=== PATIENT | female | born 1995 | race Hispanic/Latino ===

== ENCOUNTER 2021-05-03 10:58 | Emergency (ER) | payer OTHER, SELFPAY ==
[2021-05-03 11:01] VITALS: BP 123/81; PULSE 69; RESP 18; TEMP 37.3; O2SAT 100
--- NOTE | 2021-05-03 12:46 | ED.WOUNDLAC ---
HPI - Wound/Laceration General Chief Complaint: Wound/Laceration Stated Complaint: Right Hand Laceration Time Seen by Provider: 05/03/21 11:48 Source: patient Mode of arrival: ambulatory Limitations: no limitations History of Present Illness HPI narrative: This is a 25-year-old female that presents to the emergency department for right hand laceration sustained early this morning. Reports sometime after midnight she accidentally cut her hand on some sharp scissors. Reports bleeding and pain to the area. She is up-to-date on tetanus. Denies decreased range of motion or numbness. Related Data Allergies Allergy/AdvReac Type Severity Reaction Status Date / Time NKDA Allergy Unknown Unknown Uncoded 05/03/21 11:04 Review of Systems Review of Systems: Narrative: CONSTITUTIONAL: Denies fever SKIN: Reports laceration MUSCULOSKELETAL: Denies joint pain, or myalgia. NEUROLOGIC: Denies numbness All systems reviewed & are unremarkable except as noted in HPI and below PMFSH Past Medical History Medical History (Updated 05/03/21 @ 13:13 by Kateryna Nieves PA-C) No active medical problems Social History Social History (Updated 05/03/21 @ 12:47 by Kateryna Nieves PA-C) Smoking status: Never smoker Exam Narrative: Exam Narrative: GENERAL: Well-appearing, well-nourished, and in no acute distress. HEAD: Normocephalic, atraumatic. EYES: EOMI. EXTREMITIES: Normal range of motion. No edema obvious deformity. Right hand lateral to the fifth metacarpal with 2 cm linear laceration into subcutaneous tissue. Normal radial pulses. Normal sensation SKIN: Warm, dry, no rash. NEURO: No focal deficits. Alert and oriented x3. PSYCH: Normal mood and affect Course Vital Signs Vital signs: Vital Signs Temperature 99.1 F 05/03/21 11:01 Pulse Rate 69 05/03/21 11:01 Respiratory Rate 18 05/03/21 11:01 Blood Pressure 123/81 05/03/21 11:01 Pulse Oximetry 100 05/03/21 11:01 Temperature 99.1 F 05/03/21 11:01 Pulse Rate 69 05/03/21 11:01 Respiratory Rate 18 05/03/21 11:01 Blood Pressure 123/81 05/03/21 11:01 Pulse Oximetry 100 05/03/21 11:01 Procedures Laceration Laceration 1: Date: 05/03/21 Time: 13:11 Site: hand Side (If applicable): right Size (cm): 2 Description: linear Depth: simple, single layer Local Anesthetic: lidocaine 1% and with epi Amount of anesthesia used (mL): 2 Pre-repair: irrigated ====== Skin Level ====== Skin layer closed with: nylon Size (cm): 5-0 Number of sutures: 2 Technique: simple, interrupted ====== Subcutaneous Layer ====== ====== Muscle Layer ====== ====== Tendon Layer ====== MDM - Wound/Laceration MDM Narrative Medical decision making narrative: Patient presents the emergency department for laceration to right hand sustained earlier this morning. I wound was irrigated and closed with sutures. She is up-to-date on tetanus. She was educated on wound care. She is to follow-up with primary care doctor for suture removal. She was given warnings to return to the ER Critical Care Time Critical Care Time Critical Care Time: No Discharge Plan Discharge Clinical Impression: Laceration Patient Disposition: Home, Self-Care Condition: Stable Instructions: Care For Your Stitches (ED), Laceration (ED) Additional Instructions: Return to the emergency department if you experience fever, redness or swelling of your wound, abnormal drainage from your wound, or any other symptoms that are concerning to you. Apply antibiotic ointment daily. Do not soak the wound. Clean with mild soap and water daily Follow-up with your primary care doctor for suture removal in 10-14 days. Follow-up/Referrals: Shawn French MD [Primary Care Provider] - 2 Weeks
[2021-05-03 13:55] VITALS: BP 113/89; PULSE 82; RESP 18; TEMP 36.6; O2SAT 100
== END 2021-05-03 14:14 | disposition home or self-care (01) ==
PROVIDERS: Emergency Provider Emergency Medicine; PCP Family Medicine
DX: S61.411A Laceration without foreign body of right hand, initial encounter (principal); W27.2XXA Contact with scissors, initial encounter
CPT/HCPCS: 12001; 99282

== ENCOUNTER 2022-09-20 10:46 | Emergency (ER) | payer OTHER, SELFPAY ==
[2022-09-20 11:12] VITALS: BP 130/77; PULSE 94; RESP 20; TEMP 36.3; O2SAT 100
--- NOTE | 2022-09-20 12:29 | ED.EAR ---
HPI - Ear Problem General Chief complaint: Ear Stated complaint: Ears Irritation Time Seen by Provider: 09/20/22 12:30 Source: patient Mode of arrival: ambulatory Limitations: no limitations History of Present Illness HPI Narrative: 27-year-old female presents with complaint of bilateral ear pressure that started yesterday. Reports that she has been sick for 1 week with nasal congestion, postnasal drainage, sore throat and cough. Is taking an [id number] medication to treat her symptoms. Afebrile. Denies chest pain and shortness of breath. All systems reviewed and negative except as noted above. Related Data Allergies Allergy/AdvReac Type Severity Reaction Status Date / Time NKDA Allergy Unknown Unknown Uncoded 09/20/22 12:11 Review of Systems Review of Systems: CONSTITUTIONAL: Denies fever, chills, or sweats. EYES: Denies visual changes, redness, or discharge. ENT: Report rhinorrhea, congestion, sore throat, and otalgia. CARDIOVASCULAR: Denies chest pain, palpitations, or edema. RESPIRATORY: reports cough. Denies dyspnea. GASTROINTESTINAL: Denies abdominal pain, nausea, vomiting, or diarrhea. GENITOURINARY: Denies dysuria or hematuria. SKIN: Denies rash or itching. MUSCULOSKELETAL: Denies back pain, joint pain, or myalgia. NEUROLOGIC: Denies headache, numbness, or weakness. PSYCHIATRIC: Denies anxiety or depression. All other systems reviewed are negative, except as documented in HPI. [facility] Past Medical History Medical History (Updated 09/20/22 @ 12:37 by Macrina Singh NP) No active medical problems Social History Social History (Updated 05/03/21 @ 12:47 by Kateryna Nieves PA-C) Smoking status: Never smoker Comments At time of signature, agree with nursing past medical, surgical, social and family history. There is no relevant family history pertinent to the presenting complaint. Exam Narrative: GENERAL: This is a well-nourished, well-developed patient, in no apparent distress. HEAD: normocephalic, atraumatic. EYES: PERRL. Sclera clear/white. Vision is grossly intact. EARS: External ears normal, auditory canals clear and without drainage, fluid to bilateral TMs with erythema, no perforation. NOSE: External nose normal with clear nasal drainage, erythema to both nares without swelling THROAT: Mucous membranes moist, mild erythema with clear post nasal drainage NECK: Neck supple, non-tender without lymphadenopathy, masses or thyromegaly. CARDIOVASCULAR: Regular rate and rhythm without murmurs, gallops, or rubs. RESPIRATORY: Clear to auscultation. Breath sounds equal bilaterally. No wheezes, rales, or rhonchi. Wet cough noted. GASTROINTESTINAL: Abdomen soft, non-tender, nondistended. Bowel sounds are active. No hepato-splenomegaly, or palpable masses. No guarding. SKIN: warm, Dry, intact with no suspicious lesions or rash, good texture and turgor. NEURO: awake, alert, and oriented to person, place and time. There were no obvious focal neurologic abnormalities. EXTREMITIES: No joint tenderness, effusion, or edema noted. Course Course Level of Care: Express Care Visit Vital Signs Vital signs: Vital Signs Temperature 36.3 C L 09/20/22 11:12 Pulse Rate 94 09/20/22 11:12 Respiratory Rate 20 09/20/22 11:12 Blood Pressure 130/77 09/20/22 11:12 Pulse Oximetry 100 09/20/22 11:12 Oxygen Delivery Room Air 09/20/22 11:12 Temperature 36.3 C L 09/20/22 11:12 Pulse Rate 94 09/20/22 11:12 Respiratory Rate 20 09/20/22 11:12 Blood Pressure 130/77 09/20/22 11:12 Pulse Oximetry 100 09/20/22 11:12 Oxygen Delivery Room Air 09/20/22 11:12 Reviewed Medical Decision Making MDM Narrative Medical decision making narrative: Patient is aware of diagnosis, understands and agrees to treatment plan. Anticipatory guidance given. Patient agrees to follow-up as directed and is aware of reasons to seek care at the emergency department. Portions of this record m
== END 2022-09-20 12:41 | disposition home or self-care (01) ==
PROVIDERS: Emergency Provider Nurse Practitioner Family
DX: J06.9 Acute upper respiratory infection, unspecified (principal); H65.03 Acute serous otitis media, bilateral
CPT/HCPCS: 99213; G0463